=== PATIENT | female | born 1990 | race African-American/Black ===

== ENCOUNTER 2017-05-25 11:35 | Emergency (ER) | payer OTHER ==
[~2017-05-25] VITALS: Ht 165.1 cm; Wt 45.4 kg
[~2017-05-25 11:35] MED LIST: CITRATE OF MAG300 ML PO; FLAGYL500 MG PO; NAPROSYN500 MG PO; NOHOMEMEDICATIONS; NORCO 5-325 TA1 EACH PO; PRENATAL VITAM1 EACH PO; TRAMADOL 50 MG50 MG PO
[2017-05-25] MEDS ORDERED: VITAMIN D1000 UNI1 PO (11:37)
[2017-05-25 12:06] LABS: HEMATOCRIT 41.5 % (37.0-47.0); HEMOGLOBIN 14.3 gm/dL (12.0-15.0); MCH 32.1 pg (26.0-34.0); MCHC 34.4 g/dL (28.0-37.0); MCV 93.5 fL (80.0-100.0); PLATELET COUNT 160 thou/uL (150-400); RBC 4.44 mil/uL (4.20-5.00); RDW 12.8 % (10.5-14.5); WBC 3.5 thou/uL (4.0-11.0)
[2017-05-25 12:08] LABS: MANUAL DIFF YES
[2017-05-25 12:12] LABS: URINE BILIRUBIN NEGATIVE (Negative); URINE BLOOD NEGATIVE (Negative); URINE COLOR YELLOW; URINE GLUCOSE-RANDOM* NEGATIVE (Negative); URINE KETONES NEGATIVE (Negative); URINE LEUKOCYTES-REFLEX 2+ (Negative); URINE PROTEIN (DIPSTICK) TRACE (Negative)
[2017-05-25 12:14] LABS: CALCIUM 8.6 mg/dL (8.5-10.1); CREATININE 0.9 mg/dL (0.6-1.0); POTASSIUM 3.7 mmol/L (3.5-5.1)
[2017-05-25 12:20] LABS: SQUAMOUS 4-10 Moderate /LPF (0-3)
[2017-05-25 12:21] LABS: CASTS None Seen /LPF (None Seen); CRYSTALS None Seen /LPF (None Seen); URINE RBC 0-2 Rare /HPF (0-2); URINE WBC-REFLEX 0-5 Rare /HPF (0-5)
[2017-05-25 12:25] LABS: ABSOLUTE NEUTROPHILS 1.5 thou/uL (1.4-8.2); PLATELET ESTIMATE NORMAL; TOTAL CELL COUNT 100
[2017-05-25] MEDS ORDERED: KEFLEX500 MG PO (12:52)
[2017-05-25 13:03] VITALS: BP 91/59
== END 2017-05-25 13:05 | disposition home or self-care (01) ==
LOC: ER 11:35
PROVIDERS: Emergency Medicine
DX: R51 Headache (principal); N39.0 Urinary tract infection, site not specified

== ENCOUNTER 2018-07-04 13:41 | Emergency (ER) | payer OTHER ==
[~2018-07-04] VITALS: Ht 149.9 cm; Wt 49.9 kg
[~2018-07-04 13:41] MED LIST changes: +BUTALB-APAP-CA1 EACH PO; +KEFLEX500 MG PO; +VITAMIN D1000 UNI1 PO
[2018-07-04 14:36] LABS: ABSOLUTE NEUTROPHILS 2.2 thou/uL (1.4-8.2); BASOPHILS 0.4 % (0.0-2.0); EOSINOPHILS 2.7 % (0.0-3.0); HEMATOCRIT 38.8 % (37.0-47.0); HEMOGLOBIN 13.7 gm/dL (12.0-15.0); LYMPHOCYTES 28.1 % (24.0-44.0); MCH 32.5 pg (26.0-34.0); MCHC 35.2 g/dL (28.0-37.0); MCV 92.2 fL (80.0-100.0); MONOCYTES 8.8 % (1.0-8.0); PLATELET COUNT 199 thou/uL (150-400); RBC 4.21 mil/uL (4.20-5.00); RDW 12.4 % (10.5-14.5); WBC 3.6 thou/uL (4.0-11.0)
[2018-07-04 14:43] LABS: CALCIUM 8.8 mg/dL (8.5-10.1); CREATININE 0.8 mg/dL (0.6-1.0); POTASSIUM 3.8 mmol/L (3.5-5.1)
[2018-07-04 14:49] LABS: ALBUMIN 3.4 g/dL (3.4-5.0); DIRECT BILIRUBIN 0.2 mg/dL (<0.1-0.3); TOTAL BILIRUBIN 0.8 mg/dL (<0.1-1.0); TOTAL PROTEIN 7.1 g/dL (6.4-8.2)
[2018-07-04] MEDS ORDERED: PROTONIX 20 MG20 M1 PO (15:01)
[2018-07-04] MEDS ORDERED: ZOFRAN4 MG PO (15:01)
[2018-07-04] MEDS ORDERED: CARAFATE 1 GM TA1 G1 PO (15:01)
[2018-07-04 15:37] VITALS: BP 108/69
== END 2018-07-04 15:41 | disposition home or self-care (01) ==
LOC: ER 13:41
PROVIDERS: Emergency Medicine
DX: K29.70 Gastritis, unspecified, without bleeding (principal); K21.9 Gastro-esophageal reflux disease without esophagitis; R05 Cough; Z87.442 Personal history of urinary calculi

== ENCOUNTER 2019-08-25 21:52 | Emergency (ER) | payer OTHER ==
[~2019-08-25] VITALS: Ht 152.4 cm; Wt 58.1 kg
[~2019-08-25 21:52] MED LIST changes: +CARAFATE 1 GM TA1 G1 PO; +PROTONIX 20 MG20 M1 PO; +ZOFRAN4 MG PO
[2019-08-25 23:15] VITALS: BP 115/72
== END 2019-08-25 23:29 | disposition home or self-care (01) ==
LOC: ER 21:52
DX: J11.1 Influenza due to unidentified influenza virus with other respiratory manifestations (principal); Z87.442 Personal history of urinary calculi

== ENCOUNTER 2019-09-06 23:52 | Emergency (ER) | payer OTHER ==
[~2019-09-06] VITALS: Ht 152.4 cm; Wt 58.1 kg
[2019-09-07 00:21] LABS: URINE BILIRUBIN NEGATIVE (Negative); URINE BLOOD 3+ (Negative); URINE CLARITY SL CLOUDY; URINE COLOR YELLOW; URINE GLUCOSE-RANDOM* NEGATIVE (Negative); URINE KETONES NEGATIVE (Negative); URINE NITRITE-REFLEX NEGATIVE (Negative); URINE PROTEIN (DIPSTICK) 1+ (Negative)
[2019-09-07 00:24] LABS: URINE LEUKOCYTES-REFLEX 2+ (Negative)
[2019-09-07 00:26] LABS: HEMATOCRIT 39.1 % (37.0-47.0); HEMOGLOBIN 13.3 gm/dL (12.0-15.0); PLATELET COUNT 213 thou/uL (150-400); RBC 4.29 mil/uL (4.20-5.00); RDW 12.3 % (10.5-14.5); WBC 4.3 thou/uL (4.0-11.0)
[2019-09-07 00:43] LABS: BACTERIA-REFLEX None Seen /HPF (None Seen); CASTS None Seen /LPF (None Seen); CRYSTALS None Seen /LPF (None Seen); MUCUS 0-3 Light strn/LPF (None Seen); SQUAMOUS 0-3 Few /LPF (0-3); YEAST-REFLEX Present (None Seen)
[2019-09-07 00:44] LABS: URINE WBC-REFLEX 6-15 Few /HPF (0-5)
[2019-09-07 00:47] LABS: CALCIUM 8.9 mg/dL (8.5-10.1); CREATININE 0.8 mg/dL (0.6-1.0)
[2019-09-07 00:53] LABS: ALBUMIN 3.6 g/dL (3.4-5.0); TOTAL BILIRUBIN 0.5 mg/dL (<0.1-1.0); TOTAL PROTEIN 7.4 g/dL (6.4-8.2)
[2019-09-07 01:09] LABS: ABSOLUTE NEUTROPHILS 2.5 thou/uL (1.4-8.2); LARGE PLATELETS OCCASIONAL
[2019-09-07 02:20] VITALS: BP 102/67
== END 2019-09-07 02:20 | disposition home or self-care (01) ==
LOC: ER 23:52
PROVIDERS: Emergency Medicine
DX: R82.998 Other abnormal findings in urine (principal); Z87.442 Personal history of urinary calculi

== ENCOUNTER 2019-11-03 19:35 | Emergency (ER) | payer OTHER ==
[~2019-11-03] VITALS: Ht 149.9 cm; Wt 58.1 kg
[2019-11-03 19:53] LABS: URINE BILIRUBIN NEGATIVE (Negative); URINE BLOOD 3+ (Negative); URINE CLARITY SL CLOUDY; URINE COLOR YELLOW; URINE GLUCOSE-RANDOM* NEGATIVE (Negative); URINE KETONES NEGATIVE (Negative); URINE LEUKOCYTES-REFLEX NEGATIVE (Negative); URINE NITRITE-REFLEX NEGATIVE (Negative); URINE PROTEIN (DIPSTICK) 1+ (Negative); URINE SPECIFIC GRAVITY >= 1.030 (1.005-1.035)
[2019-11-03 20:01] LABS: CRYSTALS None Seen /LPF (None Seen); SQUAMOUS 0-3 Few /LPF (0-3); URINE RBC >20 Many /HPF (0-2); YEAST-REFLEX Present (None Seen)
[2019-11-03 20:03] LABS: CASTS None Seen /LPF (None Seen); URINE WBC-REFLEX None Seen /HPF (0-5)
[2019-11-03 20:05] LABS: BACTERIA-REFLEX 1-9 Few /HPF (None Seen)
[2019-11-03] MEDS ORDERED: DIFLUCAN100 MG PO (21:52)
[2019-11-03 22:24] VITALS: BP 125/76
== END 2019-11-03 22:27 | disposition home or self-care (01) ==
LOC: ER 19:35
PROVIDERS: Emergency Medicine
DX: K59.00 Constipation, unspecified (principal); B37.9 Candidiasis, unspecified; Z79.899 Other long term (current) drug therapy

== ENCOUNTER 2020-04-14 00:51 | Emergency (ER) | payer OTHER ==
[~2020-04-14] VITALS: Ht 149.9 cm; Wt 58.1 kg
[~2020-04-14 00:51] MED LIST changes: +DIFLUCAN100 MG PO
[2020-04-14 02:36] LABS: ABSOLUTE NEUTROPHILS 2.6 thou/uL (1.4-8.2); BASOPHILS 0.7 % (0.0-2.0); EOSINOPHILS 3.2 % (0.0-3.0); HEMATOCRIT 40.5 % (37.0-47.0); HEMOGLOBIN 13.6 gm/dL (12.0-15.0); LYMPHOCYTES 31.1 % (24.0-44.0); MCH 31.5 pg (26.0-34.0); MCHC 33.7 g/dL (28.0-37.0); MCV 93.6 fL (80.0-100.0); MONOCYTES 9.8 % (1.0-8.0); PLATELET COUNT 189 thou/uL (150-400); POLYS 55.2 % (36.0-66.0); RBC 4.32 mil/uL (4.20-5.00); RDW 12.8 % (10.5-14.5); WBC 4.7 thou/uL (4.0-11.0)
[2020-04-14 02:41] LABS: ANION GAP 7 mmol/L (7-16); BUN 11 mg/dL (7-18); CALCIUM 8.6 mg/dL (8.5-10.1); CHLORIDE 105 mmol/L (98-107); CO2 26 mmol/L (21-32); CREATININE 0.8 mg/dL (0.6-1.0); GLUCOSE 87 mg/dL (74-106); POTASSIUM 3.7 mmol/L (3.5-5.1); SODIUM 138 mmol/L (136-145)
[2020-04-14 02:50] LABS: TROPONIN-I <0.06 ng/mL (<0.06)
[2020-04-14 04:52] VITALS: BP 116/89
--- NOTE | 2020-04-14 09:23 | EKG ---
[facility] [place] [address] ELECTROCARDIOGRAM REPORT Name: KEYANNA JAMIL Room #: DEP [facility]#: [id number] Admission: 04/14/20 Attend Phys: Discharge: 04/14/20 Date of : [birth year] Report #: [id number] THIS REPORT FOR: cc: SHIN - Elizabeth family physician/PCP SHIN - Elizabeth family physician/PCP Dominik Marie MD [facility] THIS REPORT FOR: //name// [facility] ED Test Date: 2020-04-14 Test Time: 04:24:27 Pat Name: KEYANNA JAMIL Department: Room: Gender: Clerk General Office: [facility] : 1990 Requested By: Andreas Barnard Order Number: [id number] MD: Dominik Marie Measurements Intervals [place] Rate: 61 P: 12 MA: 151 QRS: 21 QRSD: 73 T: 36 QT: 387 QTc: 390 Interpretive Statements Sinus arrhythmia Normal tracing Compared to ECG 01/19/2016 10:04:59 No significant change was found Electronically Signed On 04-14-2020 9:23:33 CDT by Dominik Marie [email or web address] <ELECTRONICALLY SIGNED> By: Dominik Marie MD, [facility] 04/14/20 0923 0424 0424 Dominik Marie MD, [facility] /EPI
== END 2020-04-14 04:53 | disposition home or self-care (01) ==
LOC: ER 00:51
PROVIDERS: Emergency Medicine
DX: R55 Syncope and collapse (principal); R51 Headache; M79.7 Fibromyalgia; Z87.442 Personal history of urinary calculi; Z79.899 Other long term (current) drug therapy